=== PATIENT | female | born 2005 | race Caucasian/White ===

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

== ENCOUNTER 2024-01-19 | Outpatient (REF) | payer MEDICAID, SELFPAY | END 2024-01-19 00:01 | disposition home or self-care (01) | LOC: HO.HHCLNP | PROVIDERS: Visit Provider Pediatrics | DX: B34.9 Viral infection, unspecified (principal) | CPT/HCPCS: 87070; 87147 ==

== ENCOUNTER 2024-01-25 18:47 | Emergency (ER) | payer MEDICAID, SELFPAY ==
[2024-01-25 18:53] VITALS: BP 96/54; PULSE 69; RESP 18; TEMP 37.1; O2SAT 99; BMI 36.0
--- NOTE | 2024-01-25 18:54 | ED_ITS ---
HPI - General Adult General Chief complaint: Syncope Stated complaint: syncope Time Seen by Provider: 01/25/24 21:46 Source: patient and family Mode of arrival: ambulatory Limitations: no limitations History of Present Illness HPI narrative: 18 yo female otherwise healthy no GIB symptoms no recent illness has IUD no travel was visiting grandfather in ICU when she felt weak and dizzy then had syncopal event no preceding CP/SOB no injury feels fine and wants to go home. Has had this happen before. No fam hx of sudden cardiac . MD complaint: syncope Onset (ago): minute(s) (prior to arrival ) Radiation: non-radiation Severity: mild Relieving factors: rest Exacerbating factors: none Associated symptoms: denies other symptoms Treatments prior to arrival: none Related Data Allergies Allergy/AdvReac Type Severity Reaction Status Date / Time latex Allergy Hives Verified 01/25/24 19:00 Review of Systems 2 Review of Systems: Constitutional : No Fever, No Chills, No Fatigue ENT/Mouth : No sore throat, No Rhinorrhea Eyes: No Eye Pain, No Swelling, No Redness Cardiovascular : No Chest Pain, No SOB, No Dyspnea on Exertion Respiratory : No Cough, No Sputum Gastrointestinal : No Nausea, No Vomiting, No Diarrhea, No abdominal Pain Genitourinary : No Dysuria, No Urinary Frequency, No Hematuria, Musculoskeletal : No joint pain, No Myalgias, No Joint Swelling Skin : No Skin Lesions, No rash Neuro : No Weakness, No Numbness, No Dizziness, no Headache, pos syncope Psych : No Anxiety/Panic, No Depression All other systems reviewed and are negative [facility] Past Medical History Attestation statement: The following information was validated with the patient. Source: old records reviewed Medical History No pertinent past medical history Social History Social History (Updated 01/25/24 @ 22:13 by Vania Jansen DO) Patient Tobacco Use Status: Never used Tobacco Physical Exam ED Vital Signs: Vital Signs - 24 hr 01/25/24 18:53 01/25/24 21:50 Temperature 98.7 F 97.8 F Pulse Rate 69 69 Respiratory Rate 18 17 Blood Pressure 96/54 L 121/77 Pulse Oximetry 99 97 Oxygen Delivery Method Room Air Room Air BMI result Body Mass Index 36.0 Appearance: Alert. Oriented X3. No acute distress. Eyes: Pupils equal, round and reactive to light. ENT: Pharynx normal. Neck: Normal inspection. Neck supple. CVS: Normal heart rate and rhythm. Pulses normal. Respiratory: No respiratory distress. Breath sounds normal. Abdomen: Soft and nontender. Skin: Skin warm and dry. Normal skin color. Normal skin turgor. Extremities: No lower extremity edema. No calf ttp Neuro: Oriented X 3. No motor deficit. No sensory deficit. Course Course Course Narrative: This is an RME: Additional HPI, ROS, PE not included below will be deferred to primary provider. 18 yo f presents sp syncopal episode. Syncopized against the wall and slowly lowered self down. Reports feeling nauseous prior to episode. Endorses headache, diffuse in nature, no visual disturbances. Was in ICU visiting her grandma. On control, currently on period. Denies cp, sob. Medical Decision Making Medical Decision Making MDM Narrative: 18 yo female with no sig PMH no travel no OCP use here with c/o syncopal episode while in ICU had prodrome of feeling faint no CP/SOB she is PERC negative no GIB and no recent anemia at this time will need basic labs, EKG, repeat BP and test if work up negative stable for DC Differential Diagnosis Differential Diagnoses: The differential diagnosis associated with the presentation includes anemia, dehydration, PERC negative, no CP/SOB doubt VTE/ACS, vasovagal syncope Admission/Observation Consideration of admission/observation: Escalation of care including admission/observation considered back to baseline had prodrome no concerning features stable for DC feels back to baseline Lab Data [facility] Lab Attestation statement: I reviewed the patient's lab results. 01/25/24 19:08 01/25/24 19:08 Labs: Lab Results 01/25/24 01/25/24 Range/Units 18:58 19:08 WBC 8.0 (4.8-10.8) X10*3/uL RBC 4.46 (4.20-5.50) X10*6/uL Hgb 13.3 (12.0-16.0) g/dl Hct 40.5 (37.0-47.0) % MCV 90.8 (80.0-98.0) fL MCH 29.8 (27.0-33.0) pg MCHC 32.8 (31.0-35.0) g/dl RDW 12.6 (11.0-16.0) % Plt Count 309 (160-400) X10*3/uL MPV 10.7 (9.4-12.3) fL Immature Gran % (Auto) 0.1 (0.0-0.4) % Neut % (Auto) 57.1 (45-73) % Lymph % (Auto) 34.7 (20-40) % [place] % (Auto) 6.7 (2-11) % Eos % (Auto) 0.9 (0-4) % Baso % (Auto) 0.5 (0-2) % Lymph # (Auto) 2.8 (1.2-4.9) X10*3/uL [place] # (Auto) 0.5 (0.1-1.2) X10*3/uL Eos # (Auto) 0.1 (0.0-0.4) X10*3/uL Baso # (Auto) 0.0 (0.0-0.2) X10*3/uL Abs Immat Gran (auto) 0.01 (0.00-0.03) X10*3/uL Absolute Neuts (auto) 4.6 (2.0-8.3) x10*3/uL Absolute Nucleated RBC 0.000 (0.0-0.012) X10*3/uL Nucleated RBC % (auto) 0.0 (0.0-0.2) /100WBC PT 12.9 (11.1-13.3) SEC INR 1.1 (0.9-1.1) Sodium 142 (135-145) mmol/L Potassium 3.9 (3.3-5.1) mmol/L Chloride 108 (96-108) mmol/L Carbon Dioxide 24 (22-29) mmol/L Anion Gap 14 (12-20) BUN 11 (9-16) mg/dL Creatinine 0.82 (0.5-1.4) mg/dL Estim Creat Clear Calc 123.5 Estimated GFR > 60 POC Glucose 109 (60-115) mg/dL Random Glucose 101 (60-115) mg/dL Calcium 9.3 (8.4-10.2) mg/dL Magnesium 1.8 (1.6-2.6) mg/dL Total Bilirubin 0.3 (0.0-1.0) mg/dL AST 33 H (5-31) U/L ALT 49 H (0-31) U/L Alkaline Phosphatase 71 (39-117) U/L Troponin I High Sens < 2.7 (<3.5-17.0) ng/L Total Protein 7.5 (6.5-8.0) g/dL Albumin 4.4 (3.5-5.0) g/dL Independent Interpretation I performed an independent interpretation of an: EKG Interpretation: Rate: 65 Rhythm: NSR [place]: normal Normal P waves. Normal [place]. Normal QRS complex. ST T wave : normal no DIRK qTC: 388 prior studies: no acute ischemia The study has been interpreted contemporaneously by me. . Independent Historian Clinical information obtained from an independent historian. History obtained from or confirmed by: Parent Discharge Plan Discharge Clinical Impression: Vasovagal syncope Patient Disposition: Home, Self-Care Instructions: Syncope (ED) Additional Instructions: stay hydrated and take it easy. return for any symptoms of chest pain or trouble breathing. your liver enzymes are mildly elevated please follow up with your doctor this has happened in the past suspect you might have mild fatty liver Print Language: Japanese
--- NOTE | 2024-01-25 18:57 | ECG_ITS ---
Test Reason : syncopy Blood Pressure : / mmHG Vent. Rate : 065 BPM Atrial Rate : 065 BPM P-R Int : 172 ms QRS Dur : 086 ms QT Int : 374 ms P-R-T Axes : 023 065 033 degrees QTc Int : 388 ms Normal sinus rhythm Normal ECG No previous ECGs available Referred By: Jacqueline Garrido Electronically Signed By:MORGAN CHAKRABORTY
[2024-01-25 19:11] LABS: MANUAL DIFF FLAG NO
[2024-01-25 19:21] LABS: Basophils Percent Auto 0.5 % (0-2); Eosinophils Absolute Auto 0.1 X10*3/uL (0.0-0.4); Eosinophils Percent Auto 0.9 % (0-4); Hematocrit 40.5 % (37.0-47.0); Hemoglobin 13.3 g/dl (12.0-16.0); Imm Gran Abs Auto 0.01 X10*3/uL (0.00-0.03); Imm Gran Pct Auto 0.1 % (0.0-0.4); Lymphocytes Absolute Auto 2.8 X10*3/uL (1.2-4.9); Lymphocytes Percent Auto 34.7 % (20-40); Mean Corpuscular HGB Conc 32.8 g/dl (31.0-35.0); Mean Corpuscular Hemoglobin 29.8 pg (27.0-33.0); Mean Corpuscular Volume 90.8 fL (80.0-98.0); Mean Platelet Volume 10.7 fL (9.4-12.3); Monocytes Absolute Auto 0.5 X10*3/uL (0.1-1.2); Monocytes Percent Auto 6.7 % (2-11); Neutrophils Absolute Auto 4.6 x10*3/uL (2.0-8.3); Neutrophils Percent Auto 57.1 % (45-73); Platelet Count 309 X10*3/uL (160-400); Red Blood Count 4.46 X10*6/uL (4.20-5.50); Red Cell Distribution Width 12.6 % (11.0-16.0)
[2024-01-25 19:22] LABS: INTERNATIONAL NORM RATIO 1.1 (0.9-1.1); Prothrombin Time 12.9 SEC (11.1-13.3)
[2024-01-25 19:27] LABS: Alanine Aminotransferase 49 U/L (0-31); Albumin Level 4.4 g/dL (3.5-5.0); Alkaline Phosphatase 71 U/L (39-117); Anion Gap 14 (12-20); Aspartate Amino Transferase 33 U/L (5-31); Bilirubin Total 0.3 mg/dL (0.0-1.0); Blood Urea Nitrogen 11 mg/dL (9-16); Calcium 9.3 mg/dL (8.4-10.2); Carbon Dioxide 24 mmol/L (22-29); Chloride 108 mmol/L (96-108); Creatinine Clr Calc Pharmacy 123.5; Estimated Glomerular Filt Rate > 60; Glucose Random 101 mg/dL (60-115); Magnesium 1.8 mg/dL (1.6-2.6); Potassium 3.9 mmol/L (3.3-5.1); Sodium 142 mmol/L (135-145); Total Protein 7.5 g/dL (6.5-8.0)
[2024-01-25 19:35] LABS: Troponin-I High Sensitivity < 2.7 ng/L (<3.5-17.0)
[2024-01-25 21:42] LABS: Glucose, Whole Blood 109 mg/dL (60-115)
[2024-01-25 21:50] VITALS: BP 121/77; PULSE 69; RESP 17; TEMP 36.6; O2SAT 97
[2024-01-25 22:21] LABS: Appearance Urine Clear; Color Urine Yellow; Glucose Urine UA Negative (Negative); Leukocyte Esterase Urine Negative (Negative); Nitrite Urine Negative (Negative); Specific Gravity - Urine >= 1.030 (1.005-1.025); UPreg QC Valid YES; Urine Blood Negative (Negative); Urine Ketones Trace mg/dL (Negative); Urine Pregnancy NEGATIVE (NEGATIVE); Urine Protein Trace mg/dL (Neg-Trace)
--- NOTE | 2024-01-25 23:02 | PC.NURSE ---
pt from home, a&ox4, respirations even and unlabored, reports visiting tiffany in the ICU when she felt faint and passed out, pt denies head strike and denies current symptoms. pt neuros in tact. pt ambulated to bathroom with steady gait, deneis dizziness. urine obtained and sent to lab.
[2024-01-25 23:04] VITALS: BP 121/77; PULSE 69; RESP 17; TEMP 36.6; O2SAT 97
== END 2024-01-25 23:04 | disposition home or self-care (01) ==
PROVIDERS: Physician Assistant; Emergency Provider Emergency Medicine
DX: R55 Syncope and collapse (principal); R42 Dizziness and giddiness; Z79.899 Other long term (current) drug therapy
CPT/HCPCS: 36415; 80053; 81003; 81025; 82947; 83735; 84484; 85025; 85610; 93005; 99283; 99285

== ENCOUNTER → 2024-01-25 18:57 | Outpatient (BNV) | payer MEDICAID, SELFPAY | PROVIDERS: Emergency Provider Emergency Medicine; Visit Provider Internal Medicine | DX: R55 Syncope and collapse (principal) | CPT/HCPCS: 93010 ==

== ENCOUNTER 2024-02-17 09:38 | Outpatient (AMB) | payer MEDICAID, SELFPAY ==
--- NOTE | 2024-02-17 09:46 | A.OFFVIS_ITS ---
Vital Signs 02/17/24 09:49 Height 5 ft 4 in Weight 202 lb BMI 34.7 BP 133/73 Blood Pressure Location Rt brachial Position Sitting Pulse 69 Intake Visit Reasons: abscess (L) groin Intake Note: This patient presents for an assessment for abscess left groin. Pt c/o; reports completed one round of abx and noticed the abscess decreased in size, left groin. Stockroom Coordinator Required: No Accompanied by: Self / Same As Patient Allergies latex Allergy (Verified 02/17/24 09:46) Hives Medication List - Last Reconciled 02/17/24 by Juan Jose Chauhan MD sertraline (Zoloft) 25 mg PO DAILY HPI HPI abscess (L) groin: Details: [age] year old female referred for an abscess in the left groin. She says she went to an urgent care center about 2-3 weeks ago because of a swelling on the left groin. She was told that this may have been an abscess. She was started on antibiotics and was directed to see me in the office She says that the swelling and tenderness have gone down. She denies any drainage. She did not require any I&D. She denies any palpable mass at this time. [facility], [facility] Medical History (Updated 02/17/24 @ 09:56 by Juan Jose Chauhan MD) Epidermoid cyst of skin of inguinal region Depression No pertinent past medical history Surgical History No pertinent past surgical history Family History Father Thyroid cancer Social History Patient Tobacco Use Status: Never used Tobacco Review of Systems Const Denies chills and Denies fever(s) Card Denies chest pain, Denies dyspnea and Denies dyspnea on exertion Resp Denies cough, Denies dyspnea and Denies dyspnea on exertion GI Denies hematochezia and Denies change in bowel habits Denies hematuria Musc Denies back pain and Denies limited range of motion Neuro Denies focal weakness and Denies convulsions Psych Denies depression and Denies mood swings Physical Exam Const General: comfortable and no acute distress Orientation/consciousness: patient oriented x3 Neck Neck: Yes no lymphadenopathy Resp Auscultation: clear to auscultation bilaterally Cardio Rhythm: regular rhythm GI Palpation (GI): Soft to palpation, nontender and no guarding Neuro General: patient oriented x3 Extrem Other: There has no palpable mass or any cystic induration or redness on the area where she had a previous swelling Assessment & Plan Assessment & Plan (1) Epidermoid cyst of skin of inguinal region: Code(s): L72.0 - Epidermal cyst Category: Medical Plan: It appears that she may have had an infected cyst on the left groin area but 2-3 weeks ago. Current exam does not reveal any residual induration. There has no palpable mass. There was no redness or any swelling I did tell her that the cyst may recur down the line and if she has issues with this, she can come back to the office on a p.r.n. basis. I had given her my c opal with my phone number. Coding Level of Care Code New Pt Level 3 (98446) Diagnoses Epidermoid cyst of skin of inguinal region L72.0
[2024-02-17 09:49] VITALS: BP 133/73; PULSE 69; BMI 34.7
== END 2024-02-17 09:56 | disposition home or self-care (01) ==
PROVIDERS: Visit Provider Surgery
DX: L72.0 Epidermal cyst (principal)
CPT/HCPCS: 99203

== ENCOUNTER → 2024-02-17 09:38 | Outpatient (BNVA) | payer MEDICAID, SELFPAY | PROVIDERS: Visit Provider Surgery | DX: L72.0 Epidermal cyst (principal) | CPT/HCPCS: 99202 ==